=== PATIENT | male | born 1960 | race Caucasian/White ===

== ENCOUNTER 2021-10-27 08:39 | Outpatient (REF) | payer BC, SELFPAY ==
[2021-10-27 09:07] LABS: COVID-19 Test Positive (Negative)
== END 2021-10-27 08:40 | disposition home or self-care (01) ==
LOC: HO.LAB 08:39
PROVIDERS: Visit Provider Internal Medicine
DX: Z20.822 Contact with and (suspected) exposure to COVID-19 (principal)
CPT/HCPCS: 87635; C9803

== ENCOUNTER 2023-05-31 08:33 | Outpatient (AMB) | payer BC, SELFPAY ==
--- OUTSIDE RECORDS SUMMARY | 2023-05-31 08:34 | XMS_ITS | Continuity of Care Document ---
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 Role Phone Not on Staff, PCP Primary Care Physician Unavail able Encounter [facility] Date(s): 05/09/20 - 05/16/20 [facility] [address] [place] [address]- [facility] Attending Physician: Rehan Jimenez MD Allergies, Adverse Reactions, Alerts Substance Reaction Severity Status penicillin A CHILD,CAN'T RECALL SYMPTOMS Active Immunizations Given and Recorded Vaccine Date Status Refusal Reason tetanus-diphtheria toxoids (Td) 12/07/02 Given Medications amoxicillin-clavulanate 875 mg-125 mg oral tablet 1 tablet, By Mouth, Every 12 hours, for 7 days, # 14 tablet, 0 Refills, Acute 05/20/20 7:23:00 EDT,05/13/20 7:23:00 EDT, Tablet, [facility], 193, cm, 05/09/20 8:39:00 EDT, Height Start Date: 05/13/20 Stop Date: 05/20/20 Status: Ordered chlorhexidine topical 0.12% liquid 15 mL = 0.018 Gm, Swish and Spit, 4 times a day, # 840 mL, 0 Refills, Maintenance, 05/13/20 7:23:00EDT, Oral Rinse, [facility], 15 mL Swish and Spit 4 times a day,x14 days, 193, cm, 05/09/20 8:39:00 EDT, Height Start Date: 05/13/20 Stop Date: 05/27/20 Status: Ordered gabapentin 300 mg oral capsule 300 mg, 1, capsule, By Mouth, 3 times a day, # 42 capsule, Refills 0, Tot. Refills 0, Maintenance, 05/13/20 7:23:00 EDT, Route to Pharmacy Electronically, [facility], 193, cm, 05/09/20 8:39:00 EDT, Height Start Date: 05/13/20 Stop Date: 05/27/20 Status: Ordered oxyCODONE 5 mg oral tablet 5 mg, 1, tablet, By Mouth, Every 6 hours, PRN, for 5 days, # 10 tablet, Refills 0, Tot. Refills 0, Acute 05/18/20 7:25:00 EDT, Pain , Moderate, 05/13/20 7:25:00 EDT, Route to Pharmacy Electronically,[facility], Partial fill upon patient... Start Date: 05/13/20 Stop Date: 05/18/20 Status: Ordered Tylenol 325 mg oral tablet 650 mg, 2, tablet, By Mouth, Every 6 hours, for 14 days, # 112 tablet, Refills 0, Tot. Refills 0, Acute 05/27/20 7:23:00 EDT, 05/13/20 7:23:00 EDT, Route to Pharmacy Electronically, [facility], 193, cm, 05/09/20 8:39:00 EDT, Height Start Date: 05/13/20 Stop Date: 05/27/20 Status: Ordered Problem List Condition Effective Dates Status Health Status Inform ant Hypercholesterolemia(Confirmed) Active Insomnia(Confirmed) Active Vital Signs Most recent to oldest [Reference Range]: 1 Height 193 cm (05/09/20 8:39 AM) Weight 99.4 kg (05/09/20 8:39 AM) Body Mass Index [18.5-24.99] 26.69 *H* (05/09/20 8:39 AM) Temperature [96.8-100.4 DegF] 97.3 DegF (05/09/20 8:39 AM) Temperature Route Temporal (05/09/20 8:39 AM) Weight Obtained Via Standing scale (05/09/20 8:39 AM)
--- OUTSIDE RECORDS SUMMARY | 2023-05-31 08:34 | XMS_ITS | Continuity of Care Document ---
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 Rubber Splicer Name Role Phone Not on Staff, PCP Primary Care Physician Unavail able [facility]counter [facility] Date(s): 05/05/20 - 06/04/20 [facility] [phone]- [facility] Allergies, Adverse Reactions, Alerts Substance Reaction Severity Status penicillin A CHILD,CAN'T RECALL SYMPTOMS Active Immunizations Given and Recorded Vaccine Date Status Refusal Reason tetanus-diphtheria toxoids (Td) 12/07/02 Given Medications chlorhexidine topical 0.12% liquid 15 mL = 0.018 Gm, Swish and Spit, 4 times a day, # 840 mL, 0 Refills, Maintenance, 05/13/20 7:23:00EDT, Oral Rinse, [facility], 15 mL Swish and Spit 4 times a day,x14 days, 193, cm, 05/09/20 8:39:00 EDT, Height Start Date: 05/13/20 Stop Date: 05/27/20 Status: Ordered gabapentin 300 mg oral capsule 300 mg, 1, capsule, By Mouth, 3 times a day, # 42 capsule, Refills 0, Tot. Refills 0, Maintenance, 05/13/20 7:23:00 EDT, Route to Pharmacy Electronically, [facility], 193, cm, 05/09/20 8:39:00 EDT, Height Start Date: 05/13/20 Stop Date: 05/27/20 Status: Ordered Problem List Condition Effective Dates Status Health Status Inform ant Hypercholesterolemia(Confirmed) Active Insomnia(Confirmed) Active
--- NOTE | 2023-05-31 08:38 | AM.OFFWIN_ITS ---
Intake Vital Signs 05/31/23 08:44 Weight 221 lb BP 130/80 Blood Pressure Location Lt brachial Position Sitting Pulse 96 Pulse Source Pulse Oximeter Temp 97.5 F Temp Source Temporal Artery Scan Pulse Oximetry (%) 95 Oxygen Delivery Method Room Air Intake Visit Reasons: EP Flu like symptoms [phone] Intake Note: Pt is here for flu like symptoms headache, sore throat, body aches and pt stated symptoms occurred Tuesday. Patient Tobacco Use Status: Never used Tobacco Allergies No Known Allergies Allergy (Verified 05/31/23 08:38) Do you need a note to return to daycare/school/sports/work: Yes HPI EP Flu like symptoms [phone] HPI Details 62-year-old male patient presents today for sick visit. He reports that he developed sore throat, headaches, body Tuesday, and symptoms were worse on Tuesday. Since then, he has been slowly improving. Needs a note for work due to illness. He denies any known exposure to sick contacts. He has not done any home testing. He denies any shortness of breath or GI symptoms. Denies any fever or chills. [facility] Social History Patient Tobacco Use Status: Never used Tobacco Review of Systems Const All systems reviewed & are unremarkable except as noted in HPI and below Physical Exam Vital Signs: Last Vital Signs Temp 97.5 F 05/31/23 08:44 Pulse 96 05/31/23 08:44 BP 130/80 05/31/23 08:44 Pulse Ox 95 05/31/23 08:44 Oxygen Delivery Method Room Air 05/31/23 08:44 Const General: cooperative, healthy appearing, comfortable and no acute distress HEENT Head: Yes normal to inspection Ears: hearing grossly normal bilaterally and TM's normal bilaterally General nose exam: Normal external nose present, Normal nasal mucous membranes and turbinates present and Nasal discharge present mucoid Face and sinus: Yes normal facial exam Mouth: Normal oral and palatal mucosa present and moist mucous membranes Throat: Yes posterior oropharynx abnormal ( Mild erythema) Resp Effort & Inspection: normal respiratory effort and able to speak in complete sentences Auscultation: clear to auscultation bilaterally Cardio Jugular venous distension: no JVD Palpation: normal PMI Rate: regular rate Rhythm: regular rhythm Skin General skin exam: no rashes or lesions noted Extrem General: Yes capillary refill normal and Yes no clubbing, cyanosis or edema Psych Appearance: grossly normal Mental Status: mental status grossly normal Speech and movement: Normal speech and movement present Assessment & Plan Assessment & Plan (1) URI (upper respiratory infection): Code(s): J06.9 - Acute upper respiratory infection, unspecified Qualifiers: URI type: unspecified viral URI Qualified Code(s): J06.9 - Acute upper respiratory infection, unspecified Plan: Patient's symptoms consistent with viral illness. This has been improving for the last couple of days. Patient declines any viral testing/swabs. I provided him with a note to return to work on Tuesday. If he does not improve by then, or if symptoms worsen, he should return to the clinic for further evaluation. I advised he continue to rest, increase hydration, and increased vitamin C intake. He can also take Motrin / Tylenol for symptomatic treatment as needed. He verbalizes understanding and agrees to plan Coding Level of Care Code Est Pt Level 3 (76847) Diagnoses URI (upper respiratory infection) J06.9 URI type: unspecified viral URI
[2023-05-31 08:44] VITALS: BP 130/80; PULSE 96; TEMP 36.4; O2SAT 95
== END 2023-05-31 09:01 | disposition home or self-care (01) ==
PROVIDERS: Visit Provider Nurse Practitioner Family
DX: J06.9 Acute upper respiratory infection, unspecified (principal)
CPT/HCPCS: 99213

== ENCOUNTER 2024-10-08 10:46 | Emergency (ER) | payer BC, SELFPAY ==
--- NOTE | ~2024-10-08 | XR_ITS ---
EXAMINATION: Right elbow right shoulder. CLINICAL INDICATION: Fall. TECHNIQUE: 3 views right shoulder. 3 views right elbow. COMPARISON: Nothing recent. FINDINGS: RIGHT SHOULDER: There is mild cephalic migration of the related in relation to the glenoid. The glenohumeral joint spaces normal. There is loss of AC joint space with inferior spurring. No visible acute fracture, dislocation or subluxation seen. No lytic process. The soft tissues are normal. RIGHT ELBOW: There is no visible acute fracture, dislocation or subluxation seen. There is small enthesophyte along the olecranon process. No abnormal joint effusion. XR/XR elbow RT min 3V IMPRESSION: Mild degenerative changes right AC joint. No visible acute fracture or dislocation seen. Small enthesophyte along the olecranon process. Otherwise no visible acute fracture, dislocation, joint effusion or loose bodies. Electronically signed by: Jose Ramon Baker MD 10/08/2024 12:00 PM [facility]
--- NOTE | ~2024-10-08 | XR_ITS ---
EXAMINATION: Right elbow right shoulder. CLINICAL INDICATION: Fall. TECHNIQUE: 3 views right shoulder. 3 views right elbow. COMPARISON: Nothing recent. FINDINGS: RIGHT SHOULDER: There is mild cephalic migration of the related in relation to the glenoid. The glenohumeral joint spaces normal. There is loss of AC joint space with inferior spurring. No visible acute fracture, dislocation or subluxation seen. No lytic process. The soft tissues are normal. RIGHT ELBOW: There is no visible acute fracture, dislocation or subluxation seen. There is small enthesophyte along the olecranon process. No abnormal joint effusion. XR/XR shoulder RT min 2V IMPRESSION: Mild degenerative changes right AC joint. No visible acute fracture or dislocation seen. Small enthesophyte along the olecranon process. Otherwise no visible acute fracture, dislocation, joint effusion or loose bodies. Electronically signed by: Jose Ramon Baker MD 10/08/2024 12:00 PM [facility]
--- OUTSIDE RECORDS SUMMARY | 2024-10-08 10:51 | XMS_ITS | Data Portability ---
Author Organization [facility], [address] Address [address] [place] [address] Assessment No assessment recorded. Plan of Treatment Reminders Order Date Submit Date Provider Last Modified By Organization Details Last Modified Time Details Appointments None recorded. Lab rapid strep group A, throat 2022 023 [email or web address] [facility], [address] [place] [address], [id number], 3 17:01:03 rapid SARS CoV 2 Ag, QL IA, respiratory specimen 2022 023 [email or web address] _[facility], [address] [place] [address], [phone], 3 17:01:03 streptococc us group A, culture, throat 2022 023 [place] [facility], [address] [place] [address], [place], [address], 3 10:07:12 Referral None recorded. Procedures None recorded. Surgeries None recorded. Imaging None recorded. Medication Orders None recorded. Patient TargetsNo targets recorded. Patient Instructions Encounter Date Encounter Id Patient Instructions Last Modified By Organization Details Last Modified Time 10/26/2022 [id number] sore throat: car e instructions Not available 10/26/2022 17:01:03 viral respirator y infection: care instructions Not available 10/26/2022 17:01:03 Reason for Referral None Reported. Results Created Date Observation Date Name Description Value Unit Range Abnormal Flag Note LastModifiedBy Organization Detail LastModifiedTime 10/26/19 23 10/29/2022 BETA STREP GP A CULTU RE beta strep gp A culture NEGATI VE Refer ence Range : Negat claudia Not Available [facility] ([facility]) [address] [facility], [place], [address], 10/29/2022 12:06:24 10/26/19 23 10/26/2022 rapid SARS CoV 2 Ag, QL IA, respi rator y speci men Unknown Analyte Normal =Negat claudia Not Available [address] [place] [address], [phone], 10/26/2022 16:36:20 10/26/19 23 10/26/2022 rapid SARS CoV 2 Ag, QL IA, respi rator y speci men Unknown Analyte negati ve Not Available [address] [place] [address], [phone], 10/26/2022 16:36:20 10/26/19 23 10/26/2022 rapid strep group A, throa t Unknown Analyte Normal = Negati ve Not Available [address] [place] [address], [place], [phone], 10/26/2022 16:32:30 10/26/19 23 10/26/2022 rapid strep group A, throa t Unknown Analyte negati ve Not Available [address] [place] [address], [phone], 10/26/2022 16:32:30 Result Notes None recorded. Problems Name Problem SNOMED Code Status Onset Date Resolution Date Notes Provider Name and Address Organization Details Recorded Time Inguinal hernia [id number] Active 023 [facility] 16:34:58 Problem Notes None recorded. Procedures Surgical History Date Name Laterality Status Provider Name and Address Organization Details Recorded Time repair of inguinal hernia completed MAGNOLIA Aponte [facility] 10/26/2022 16:35:13 orthognathic operation of mandible completed MAGNOLIA BOATENG [facility] 10/26/2022 16:35:55 Imaging Results None recorded. Procedure Notes None recorded. Medical Equipment None Reported. Allergies No known drug allergies Medications Not known to be on any medication Vitals Date Recorded Body height Body mass index (BMI) Body weight Respiratory rate Body temperature Oxygen saturation Oxygen saturation in Arterial blood by Pulse oximetry Heart rate Systolic blood pressure Diastolic blood pressure Provider Name and Address Organization Details Last Updated DateTime 3 193.04 cm 28 kg/m2 747492. 25 g 18 /min 97.9 [degF] 99 % 99 % 102 /min 129 mm[Hg] 89 mm[Hg] MAGNOLIA BOATENG [facility] 16:36:56 Social History Question Answer Notes LastModified by [employer] ion Details LastModified Time Tobacco Smoking Status Never Smoker KILO Nagy [facility] 10/26/2022 16:36:13 What Is Your Level Of Alcohol Consumption? Occasional [email or web address] Information not available 10/26/2022 Do You Use Any Illicit Or Recreational Drugs? No [email or web address] Information not available 10/26/2022 Have You Recently Traveled Abroad? No [email or web address] Information not available 10/26/2022 Do You Or Have You Ever Used Any Other Forms Of Tobacco Or Nicotine? No Information not available 10/26/2022 Sex: Unknown Functional Status None recorded. Mental Status None recorded. Family History Relationship Description Onset Age of this Age Resolved Age Notes LastModified by Organization Details LastModified Time Father No current problems or disability [email or web address] Not available 10/26 16:35:58 Mother No current problems or disability [email or web address] Not available 10/26 16:35:58 Medical History No medical history recorded. Past Encounters Encounter ID Performer Location Encounter Start Date Encounter Closed Date Diagnosis/Indication Diagnosis SNOMED-CT Code Diagnosis ICD10 Code [id number] [facility] [address] [place] [address] 08/30/2020 14:25:50 08/30/2020 15:37:46 [id number] [facility] [address] [place] [address] 02/24/2022 08:22:06 02/24/2022 10:34:07 [id number] [facility] [address] [place] [address] 01/12/2020 11:29:20 01/12/2020 14:15:25 [id number] [facility] [address] [place] [address] 01/11/2016 07:59:15 01/11/2016 08:33:14 [id number] Bucky Burnett MD [facility] [address] [place] [address] 10/26/2022 16:17:56 10/26/2022 17:30:57 Upper respiratory infection 69780392 J06.9 Health Concerns Section Related Observation LastModified by Organization Detai ls LastModified Time None Recorded Concern Status LastModified by Organization Details LastModified Time None Recorded Advance Directives Directive None Recorded Payers Encounter Date Sequence Insurance Name Policy Number Policy Gabriel Covered Member ID Gabriel Member ID Guarantor Name 01/11/2016 1 [employer] [employer] 111 Chester Jennings [id number] Chester Jennings 01/12/2020 1 [employer] [employer] 111 Chester Jennings [id number] Chester Jennings 08/30/2020 1 [employer] [employer] 111 Chester Jennings [id number] Kaslaith Mcgillcz 02/24/2022 1 [employer] [employer] 111 Chester Jennings [id number] Chester Jennings 10/26/2022 1 [employer] [employer] 111 Chester Jennings [id number] Chester Jennings Notes Date Note Type Note Provider Name and Address Organization Details Recorded Time 10/26/2022 text/html Sore throatRepor yeyo bypatient.Location: hroat Severity:moderate Quality:sharp; hurts to swallow Onset/Timin days Associated Symptoms:no sputum production; no shortness of breath; no sinus pain; no vomiting; no nausea; No hoarseness;coughing Bucky Burnett MD [address] [facility] [place], [address], [place] - [facility] 10/26/2022 17:10:56
[2024-10-08 11:12] VITALS: BP 128/64; PULSE 109; RESP 20; TEMP 36.4; O2SAT 97; BMI 28.0
--- NOTE | 2024-10-08 11:14 | ED.GENADULT ---
HPI - General Adult General Chief complaint: Fall Stated complaint: R Shoulder Pain Fell 10/06/24 Time Seen by Provider: 10/08/24 12:07 Source: patient Mode of arrival: ambulatory Limitations: no limitations History of Present Illness ED Provider: PASHA AARON PA-C HPI narrative: 63-year-old male with no significant past medical history presents to the ED today for evaluation of right shoulder and right elbow pain s/p slip and fall on ice 2 days ago. He reports landing primarily on his right elbow however felt a majority of the impact/ pain within his right shoulder. He denies head strike or LOC. He was not on anticoagulation. Since this fall, he endorses pain primarily to his right shoulder with limited range of motion. No radiation of pain. No numbness/tingling/weakness of the RUE. He has not been taking anything for the pain at home. No history of surgery on the shoulder. Related Data Previous Rx's ?Medication ?Instructions ?Recorded naproxen 500 mg tablet 500 mg PO Q12H PRN pain (scale 10/08/24 score 1-3) #20 tabs prednisone 20 mg tablet 40 mg (2 x 20 mg) PO DAILY 4 days 10/08/24 #8 tabs Allergies Allergy/AdvReac Type Severity Reaction Status Date / Time No Known Allergies Allergy Verified 10/08/24 11:14 Review of Systems Review of Systems: Constitutional: No fever, chills, fatigue, night sweats, weight changes ENT/Mouth: No ear pain, hearing loss, nasal congestion, sinus pain, rhinorrhea, sore throat Eyes: No eye pain, swelling, redness, vision changes, discharge Cardio: No chest pain, palpitations, ASHBY, orthopnea, peripheral edema Pulm: No SOB, cough, sputum, wheezing, dyspnea, hemoptysis GI: No nausea, vomiting, hematemesis, abdominal pain, diarrhea, constipation, hematochezia, melena : No irregular bleeding, dysuria, frequency, urgency, hesitancy, hematuria, flank pain, urinary flow changes, urinary incontinence or retention MSK: No back pain, neck pain, joint pain, myalgias, +right shoulder/ right elbow pain Skin: No lesions, rashes Neuro: No weakness, numbness, paresthesias, LOC, dizziness, headache Psych: No anxiety/panic, depression, SI/HI, AH/VH All other systems reviewed and are negative. [facility] Past Medical History Attestation statement: The following information was validated with the patient. Source: old records reviewed and nursing notes reviewed Social History Social History Patient Tobacco Use Status: Never used Tobacco Advance Directives: No Advance Directives Information Provided: Yes Physical Exam ED Vital Signs: Vital Signs - 24 hr 10/08/24 11:12 Temperature 97.5 F Pulse Rate 109 H Respiratory Rate 20 Blood Pressure 128/64 Pulse Oximetry 97 Oxygen Delivery Method Room Air BMI result Body Mass Index 28.0 tachycardic, vitals otherwise wnl General: Well appearing, in no acute distress. Skin: Warm, dry, intact. No rashes or lesions. Head: Normocephalic, atraumatic. no palpable skull fracture. no battles sign. no raccoon eyes. EENT: Hearing is intact b/l. Conjunctiva clear. PERRLA. EOM intact. Moist mucous membranes.? Neck: no midline tenderness. Cardiac: Chest wall symmetric. RRR Lungs: Normal respiratory effort without accessory muscle use Abdomen: Soft, non-tender, non-distended Back: No midline spinous or paraspinal tenderness. No step off deformity. Ext: + right shoulder without noted deformity or swelling. No overlying erythema. Extremely limited ROM with abduction of right shoulder. Able to abduct the shoulder approximately 20? prior to pain onset. Tender to palpation along lateral and anterior aspects of right shoulder without palpable deformity or fluctuance. No noted deformity or swelling over right elbow. nontender. passive and active ROM intact. 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 Neuro: AOx3. Normal speech. No saddle anesthesia. Sensation intact to light touch. NV intact distally. Ambulating with steady gait. Psych: Appropriate mood and affect. Responds appropriately to questions. Course Course Course Narrative: RME, this is a rapid medical exam performed by Cliff Fitzgerald please refer to primary provider for complete H&P- 63-year-old male presents for evaluation of right shoulder and elbow pain. He reports falling on Tuesday, 2 days ago. Denies head strike. Plan for x-rays of the right shoulder and elbow Reevaluation(s) Reevaluation #1: X-ray of right shoulder shows mild degenerative changes within the right AC joint without visible fracture or dislocation. He was tender to palpation along rotator cuff musculature. Concern for rotator cuff injury. Placed in sling, Motrin provided in the ED. Prednisone and NSAIDs sent to pharmacy for treatment. X-ray of right elbow shows small enthesophyte along the olecranon process otherwise no visible acute fracture, dislocation or joint effusion. He was in no tenderness to palpation over olecranon. He has full ROM intact to right elbow. Findings are benign. Patient has been advised to follow up with your talent specialist outpatient. Referral provided. Advised to contact them for appointment. Patient has remained stable throughout ED visit today. Discussed worrisome signs and symptoms and when to return to the ED. All questions answered at this time. Patient is agreeable with disposition and stable for discharge. Procedures Orthopedic Splinting/Casting Injury #1: Side: right Upper Extremity Injury Location: shoulder Upper Extremity Immobilizer: sling/shoulder immobilizer Medical Decision Making Medical Decision Making MDM Narrative: 63-year-old male with no significant past medical history presents to the ED today for evaluation of right shoulder and right elbow pain s/p slip and fall on ice 2 days ago. He was tachycardic to 109, vitals are otherwise WNL. He is nontoxic-appearing and in no acute distress. Exam is significant for right shoulder without noted deformity or swelling. No overlying erythema. Extremely limited ROM with abduction of right shoulder. Able to abduct the shoulder approximately 20? prior to pain onset. Tender to palpation along lateral and anterior aspects of right shoulder without palpable deformity or fluctuance. No noted deformity or swelling over right elbow. nontender. passive and active ROM intact. 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 CMS intact Differential diagnosis includes rotator cuff injury, fracture, dislocation, sprain/strain, arthritis. Presentation less consistent with pseudogout, gout, bursitis, tendonitis. Unlikely compartment syndrome, neurovascular compromise, threat to limb Plan for xrays, pain control, and re-evaluation. Differential Diagnosis Differential Diagnoses: The differential diagnosis associated with the presentation includes as above. Admission/Observation Not indicated. Independent Interpretation I performed an independent interpretation of an: Plain X-Ray Interpretation: xr right shoulder without noted fracture or dislocation Radiology Impression Discussion of test interpretation with radiology: I have reviewed the radiologist's reading. Radiologist Impression: EXAMINATION: Right elbow right shoulder. CLINICAL INDICATION: Fall. TECHNIQUE: 3 views right shoulder. 3 views right elbow. COMPARISON: Nothing recent. FINDINGS: RIGHT SHOULDER: There is mild cephalic migration of the related in relation to the glenoid. The glenohumeral joint spaces normal. There is loss of AC joint space with inferior spurring. No visible acute fracture, dislocation or subluxation seen. No lytic process. The soft tissues are normal. RIGHT ELBOW: There is no visible acute fracture, dislocation or subluxation seen. There is small enthesophyte along the olecranon process. No abnormal joint effusion. XR/XR shoulder RT min 2V IMPRESSION: Mild degenerative changes right AC joint. No visible acute fracture or dislocation seen. Small enthesophyte along the olecranon process. Otherwise no visible acute fracture, dislocation, joint effusion or loose bodies. Electronically signed by: Jose Ramon Baker MD 10/08/2024 12:00 PM [facility] Prescription Management I considered prescription management with: Pain Medication (Naproxen) and Other (Prednisone) Social Determinants Patient?s care significantly limited by Social Determinants of Health including: Other Social Determinant of Health Critical Care Time Critical Care Time Critical Care Time: No Discharge Plan Discharge Clinical Impression: Injury of right rotator cuff Patient Disposition: Home, Self-Care Instructions: Rotator Cuff Injury (ED) Additional Instructions: You were evaluated in the ED today for right shoulder and elbow pain after slip and fall on ice. The x-rays of your right shoulder and elbow do not demonstrate fracture or dislocation. Your exam is concerning for injury to your right rotator cuff muscles. You have been placed in a sling today to help with immobilization/comfort. As discussed, I advise you to take steroids to help with inflammation. Prednisone as a steroid that has been sent to your pharmacy for you to take over the next 5 days. I also recommend NSAIDs for pain control. This will also help with any swelling/inflammation. Naproxen has been sent to your pharmacy for you to take as needed for pain. Do not take this with other NSAIDs such as Motrin as this can cause increased risk of GI bleeding You need to follow up with an talent specialist. You have been provided with a referral. Call them to establish care. They will not call you. Return with any new or worsening symptoms. In the case of an emergency call 911. Prescriptions: New naproxen 500 mg tablet 500 mg PO Q12H PRN (Reason: pain (scale score 1-3)) Qty: 20 0RF prednisone 20 mg tablet 40 mg PO DAILY 4 Days Qty: 8 0RF Referrals: [facility] [place] [facility] Surgeons [Provider Group] - 3 days (right rotator cuff injury) Stand Alone Forms: Work/School Release Print Language: Citizen Of [place]
[2024-10-08 13:01] VITALS: BP 128/64; PULSE 109; RESP 20; TEMP 36.4; O2SAT 97
== END 2024-10-08 13:01 | disposition home or self-care (01) ==
PROVIDERS: Emergency Provider Emergency Medicine
DX: S46.001A Unspecified injury of muscle(s) and tendon(s) of the rotator cuff of right shoulder, initial encounter (principal); W00.0XXA Fall on same level due to ice and snow, initial encounter; Y93.9 Activity, unspecified; Y92.9 Unspecified place or not applicable; Y99.9 Unspecified external cause status; M25.511 Pain in right shoulder; M25.521 Pain in right elbow
CPT/HCPCS: 73030; 73080; 99283

== ENCOUNTER → 2024-10-08 11:15 | Outpatient (BNV) | payer BC, SELFPAY | PROVIDERS: Visit Provider Radiology Diagnostic Radiology | DX: M25.511 Pain in right shoulder (principal); M25.521 Pain in right elbow | CPT/HCPCS: 73030; 73080 ==

== ENCOUNTER 2024-10-15 10:22 | Outpatient (AMB) | payer BC, SELFPAY ==
--- NOTE | 2024-10-15 10:40 | A.OFFVIS_ITS ---
Vital Signs 10/15/24 10:46 Height 6 ft 4 in Weight 230 lb BMI 28.0 Handedness Right Intake Visit Reasons: New Pt - right shoulder injury, DOI 10/06/24 Intake Note: Chester is a 64 year old right hand dominant male who presents today as a new patient for a evaluation of his right shoulder injury, DOI 10/06/24. Patient reports slipping and falling on ice which lead him to land on his right side. He states still having severe pain in his shoulder and moves down to his bicep. ROM is limited. Patient hasn't tried any pain medication. Allergies No Known Allergies Allergy (Verified 10/15/24 10:43) HPI HPI New Pt - right shoulder injury, DOI 10/06/24: Details: Mr. Sykes he is a 64-year-old right-hand dominant male who presents to the office today for evaluation of right shoulder pain. He reports that he fell on 10/06/2024. During that fall he was on a staircase and when he fell he jammed his right elbow into the stair also jamming his right shoulder upward. Ever since then he has had significant pain and limited range of motion. 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 Abduction to 60 degrees. External rotation to end range. Able to reach back pocket. Pain with cross- body reach. No additional special tests were performed due to limited range of motion and pain. NVI. Assessment & Plan Assessment & Plan (1) Rotator cuff arthropathy of right shoulder: Code(s): M12.811 - Other specific arthropathies, not elsewhere classified, right shoulder Category: Medical Plan: Mr. Dziendzielwicz he is a 64-year-old right-hand dominant male who presents to the office today for evaluation of right shoulder pain. He reports that he fell on 10/06/2024. During that fall he was on a staircase and when he fell he jammed his right elbow into the stair also jamming his right shoulder upward. Ever since then he has had significant pain and limited range of motion. All the office today patient exhibits extreme limitations in range of motion. We discussed the role of physical therapy to regain his range of motion and to help with inflammation. I would like him to attend to at least 4-6 weeks of physical therapy and then present back to the office for re-evaluation. Should he continue to have pain and difficulty with range of motion MRI will be ordered at that time. Follow up with me in 4-6 weeks sooner if needed. 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 I have given him another work note only office today until follow up. X-rays of the right shoulder were obtained in the office today and reviewed by me, Catina Chaparro PA-C, and are negative for any acute fracture or dislocation. There is some evidence of a high-riding humerus. Coding Level of Care Code New Pt Level 4 (84269) Diagnoses Rotator cuff arthropathy of right shoulder M12.811
[2024-10-15 10:46] VITALS: BMI 28.0
--- OUTSIDE RECORDS SUMMARY | 2024-10-15 11:24 | XMS_ITS | Data Portability ---
Author Organization [facility], [address] Address [address] [place] [address] Assessment No assessment recorded. Plan of Treatment Reminders Order Date Submit Date Provider Last Modified By Organization Details Last Modified Time Details Appointments None recorded. Lab rapid strep group A, throat 2022 023 [email or web address] 20995[facility], [address] [place] [address], [id number], 3 17:01:03 rapid SARS CoV 2 Ag, QL IA, respiratory specimen 2022 023 [email or web address] _[facility], [address] [place] [address], [id number], 3 17:01:03 streptococc us group A, culture, throat 2022 023 [place] [facility], [address] [place] [address], [place], [address], 3 10:07:12 Referral None recorded. Procedures None recorded. Surgeries None recorded. Imaging None recorded. Medication Orders None recorded. Patient TargetsNo targets recorded. Patient Instructions Encounter Date Encounter Id Patient Instructions Last Modified By Organization Details Last Modified Time 10/26/2022 [id number] sore throat: car e instructions Not available [...] Range : Negat claudia Not Available [facility] ([facility]) [address] [facility], [place], [address], 10/29/2022 12:06:24 10/26/19 23 10/26/2022 rapid SARS CoV 2 Ag, QL IA, respi rator y speci men Unknown Analyte Normal =Negat claudia Not Available [address] [place] [address], [phone], 10/26/2022 16:36:20 10/26/19 23 10/26/2022 rapid SARS CoV 2 Ag, QL IA, respi rator y speci men Unknown Analyte negati ve Not Available [address] [place] [address], [phone], 10/26/2022 16:36:20 10/26/19 23 10/26/2022 rapid strep group A, throa t Unknown Analyte Normal = Negati ve Not Available [address] [place] [address], [place], [phone], 10/26/2022 16:32:30 10/26/19 23 10/26/2022 rapid strep group A, throa t Unknown Analyte negati ve Not Available [address] [place] [address], [id number], 10/26/2022 16:32:30 Result Notes None recorded. Problems Name Problem SNOMED Code Status Onset Date Resolution Date Notes Provider Name and Address Organization Details Recorded Time Inguinal hernia [id number] Active 023 [facility] 16:34:58 Problem [...] Updated DateTime 3 193.04 cm 28 kg/m2 837806. 25 g 18 /min 97.9 [degF] 99 % 99 % 102 /min 129 mm[Hg] 89 mm[Hg] MAGNOLIA BOATENG [facility] 16:36:56 Social History Question Answer Notes LastModified by [employer] ion Details LastModified Time Tobacco Smoking Status Never Smoker [facility] Nag[facility] 10/26/2022 16:36:13 What Is Your Level Of Alcohol Consumption? Occasional [email or web address] Information not available 10/26/2022 Do You Use Any Illicit Or Recreational Drugs? No [email or web address] Information not available 10/26/2022 Have You Recently Traveled Abroad? No [email or web address] Information not available 10/26/2022 Do You Or Have You Ever Used Any Other Forms Of Tobacco Or Nicotine? No [email or web address] Information not available 10/26/2022 Sex: Unknown Functional Status None recorded. Mental Status None recorded. Family History Relationship Description Onset Age of this Age Resolved Age Notes LastModified by Organization Details LastModified Time Father No current problems or disability [email or web address] Not available 10/26 16:35:58 Mother No current problems or disability [email or web address] Not available 10/26 16:35:58 Medical History No medical history recorded. Past Encounters Encounter ID Performer Location Encounter Start Date Encounter Closed Date Diagnosis/Indication Diagnosis SNOMED-CT Code Diagnosis ICD10 Code Diagnosis Note [id number] [address] [place] [address] 08/30/2020 14:25:50 08/30/2020 15:37:46 [id number] [address] [facility] [place] [address] 02/24/2022 08:22:06 02/24/2022 10:34:07 [id number] [address] [facility] JOSE J Gonsalez [address] 01/12/2020 11:29:20 01/12/2020 14:15:25 [id number] [address] [facility] [place] Gonsalez [address] 01/11/2016 07:59:15 01/11/2016 08:33:14 [id number] Bucky Burnett MD [address] [facility] [place] [address] 10/26/2022 16:17:56 10/26/2022 17:30:57 Upper respiratory infection [id number] J06.9 Health Concerns Section Related Observation LastModified by Organization Detai ls LastModified Time None Recorded Concern Status LastModified by Organization Details LastModified Time None Recorded Advance Directives Directive None Recorded Payers Encounter Date Sequence Insurance Name Policy Number Policy Gabriel Covered Member ID Gabriel Member ID Guarantor Name 01/11/2016 1 [employer] [employer] 111 Chester Jennings [id number] Chester Jennings 01/12/2020 1 [employer] [employer] 111 Chester Jennings [id number] Chester Jennings 08/30/2020 1 [employer] [employer] 111 Chester Jennings [id number] Kaslaith Jennings 02/24/2022 1 [employer] [employer] 111 Chester Jennings [id number] Chester Jennings 10/26/2022 1 [place] [employer] 111 Chester Jennings [id number] Chester Jennings Notes Date Note Type Note Provider Name and Address Organization Details Recorded Time 10/26/2022 text/html Sore throatRepor yeyo bypatient.Location:t hroat Severity:moderate Quality:sharp; hurts to swallow Onset/Timin days Associated Symptoms:no sputum production; no shortness of breath; no sinus pain; no vomiting; no nausea; No hoarseness;coughing Bucky Burnett MD [address] [place], [place] [address], [address], [place] - [facility] 10/26/2022 17:10:56
== END 2024-10-15 11:00 | disposition home or self-care (01) ==
PROVIDERS: Visit Provider Physician Assistant
DX: M12.811 Other specific arthropathies, not elsewhere classified, right shoulder (principal)
CPT/HCPCS: 99204

== ENCOUNTER 2024-11-13 08:00 | Outpatient (RCR) | payer BC, SELFPAY ==
--- NOTE | 2024-10-29 09:00 | MHC.PT.EP ---
[facility] [place] [address] Tigre Haji [address] [phone] F: [phone] F: [phone] F: [phone] F: [phone] Physical Therapy Plan of Care Date of Evaluation: 10/29/24 Date of Surgery: Diagnosis: This is a 64 yo male presenting to skilled PT with a script for rotator cuff arthropathy of R shoulder. Assessment: This is a 64 yo male presenting to skilled PT with a script for rotator cuff arthropathy of R shoulder. DOI 10/06/24. Patient reports slipping and falling on ice and landed on his right side (jamming shoulder upwards). Patient is being followed by [facility] ortho who sent him here. The last ortho note states: We discussed the role of physical therapy to regain his range of motion and to help with inflammation. I would like him to attend to at least 4-6 weeks of physical therapy and then present back to the office for re-evaluation. Should he continue to have pain and difficulty with range of motion MRI will be ordered at that time. Follow up with me in 4-6 weeks sooner if needed. 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 I have given him another work note only office today until follow up. He is here today reporting that his pain is the same. Pain is located anterior shoulder and this radiates into the bicep, achy in nature and constant. Pain increases with abduction, [place], donning clothing, driving. He is RHD. He does endorse some R wrist pain as well. Denies numbness or tingling. Assessment reveals pain that ranges from up to a 7/10 at the worst. Patient demos decreased R shoulder ROM, strength of R shoulder and scapular stabalizers, TTP at GHJ joint line and ACH and impaired posture with forward head and rounded shoulders. Based on functional limitations, impaired QOL and pain tolerance patient is a good candidate for skilled PT 2x/wk for 4wks. Frequency and Duration: The patient will be seen 2x/wk for 4wks Short Term Goals: (In 2 weeks) Demo I with HEP Improve shoulder AROM by at least 10 degs Demo proper scapular recruitment with appropriate shoulder strengthening exercises Railroad Repairer Goals: (in 4 wks) Improve shoulder nonpainful AROM to almost near equal B Demo at least 1 grade improvement in MMT for shoulder Improve SPADI by at least 10 points Improve overall functional QOL by at least 50% Treatment Plan: Modalities to reduce pain, spasms and effusion. Manual therapy to restore motion and function. Therapeutic exercise to improve strength and flexibility. Neuromuscular re-education for posture and balance. Therapeutic activities to return to functional activities of daily living. Electronically signed by: Mariana Hedrick PT Please sign and return to therapist. Thank you for your referral.
--- NOTE | 2024-11-13 08:50 | MHC.PT.PR ---
[facility] [place] Office [place] Office [place] Office [address] Vanesa Haji [address] [phone] F: [phone] F: [phone] F: [phone] F: [phone] Physical Therapy Progress Note Diagnosis: This is a 64 yo male presenting to skilled PT with a script for rotator cuff arthropathy of R shoulder. Date of Surgery: Date of Evaluation: 10/29/24 Treatments to Date: 4 Cancellations to Date: 0 No Shows to Date: 0 Subjective: Pain is the same. Pain Score and Location: 7 R shoulder Objective Measures: Shoulder AROM: flexion 10, abduction 15, ER 60, IR 60 (PROM flexion 130, abduction 110, 60 and 60 with arm by side) Shoulder MMT: flexion 2-, abduction 2-, ER 3-, IR 4- cervical AROM: all WNL elbow AROM: WNL with some mild symptoms end range pronation/supination elbow MMT: flexion 5, extension 5, pronation and supination 5 SPADI: pain 82% and disability 74% Pain scale and location: 10/10 deep inside, sharp, achy and constant Functional deficits: lifting, reaching, ADLs, work related tasks, sleeping Assessment: 11/13: Patient has come to 4 weeks of PT without improvements in his symptoms or function. Above in OM are the updated ROM, strength, pain and SPADI scales. In PT we have tried RTC and scapular strengthening, ROM/stretching, STM, manual passive ROM and mobs, ice/MH, KT without improvements in pain. He is frustrated with lack of improvements and would like an image. At this point I do not see the point in him continuing skilled PT at this time and am recommending he follow up with referring MD for ? MRI or pain management. PT Plan: Discharge from PT Frequency and Duration: The patient will be seen 2x/wk for 4wks Treatment Plan: Therapeutic Exercise Dynamic Therapeutic Activities Neuromuscular Re-ed Manual Therapies Joint Mobilization Taping Home Exercise Program Patient Education Hot or Cold Pack Reviewed/ Agreed with Student Documentation: Therapist: Thank you once again for your referral.
--- NOTE | 2024-12-10 07:13 | MHC.PT.DC ---
[facility] [place] [facility] [place] [facility] [place] [facility] [address] Vanesa Haji [address] [phone] F: [phone] F: [phone] F: [phone] F: [phone] Physical Therapy Discharge Report Diagnosis: This is a 64 yo male presenting to skilled PT with a script for rotator cuff arthropathy of R shoulder. Date of Surgery: Date of Evaluation: 10/29/24 Date of Discharge: 12/10/24 Treatments to Date: 4 Cancellations to Date: 0 No Shows to Date: 0 Discharge Status: Patient Elected to Stop Recommend MD Follow-up Discharge Summary: 11/13: Patient has come to 4 weeks of PT without improvements in his symptoms or function. Above in OM are the updated ROM, strength, pain and SPADI scales. In PT we have tried RTC and scapular strengthening, ROM/stretching, STM, manual passive ROM and mobs, ice/MH, KT without improvements in pain. He is frustrated with lack of improvements and would like an image. At this point I do not see the point in him continuing skilled PT at this time and am recommending he follow up with referring MD for ? MRI or pain management. Chart closed after 30 days. Electronically signed by: Mariana Hedrick PT Please sign and return to therapist. Thank you for your referral.
== END 2024-12-10 07:13 | disposition home or self-care (01) ==
LOC: HO.PTCHIC 08:00
PROVIDERS: PCP Internal Medicine; Visit Provider Physician Assistant
DX: M12.811 Other specific arthropathies, not elsewhere classified, right shoulder (principal)
CPT/HCPCS: 97110; 97140; 97162

== ENCOUNTER 2024-11-20 09:19 | Outpatient (AMB) | payer BC, SELFPAY ==
--- NOTE | 2024-11-20 09:20 | MHC.OFFVIS ---
Intake Visit Reasons: OV - right shoulder injury, DOI 10/06/24 Intake Note: Chester is a 64 year old right hand dominant male who presents today for a follow up of his right shoulder injury, DOI 10/06/24. Patient reports his pain hasn't changed even when going to PT. Patient reports PT didn't give him any relief. He informed me that he notices a lump on his right wrist about 2 weeks ago. Allergies No Known Allergies Allergy (Verified 11/20/24 09:22) HPI HPI OV - right shoulder injury, DOI 10/06/24: Details: Mr. Sykes he is a 64-year-old right-hand dominant male who presents to the office today for follow-up of right shoulder pain. He reports that he fell on 10/06/2024. During that fall he was on a staircase and when he fell he jammed his right elbow into the stair also jamming his right shoulder upward. Ever since then he has had significant pain and limited range of motion. At his last appointment on 10/15/2024 the patient was referred to physical therapy in which he has attended. He reports that his pain and motion has not improved. 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 Abduction to 60 degrees. External rotation to end range. Able to reach back pocket. Pain with cross-body reach. No additional special tests were performed due to limited range of motion and pain. NVI. Assessment & Plan Assessment & Plan (1) Rotator cuff arthropathy of right shoulder: Code(s): M12.811 - Other specific arthropathies, not elsewhere classified, right shoulder Category: Medical Plan Mr. Sykes he is a 64-year-old right-hand dominant male who presents to the office today for follow-up of right shoulder pain. He reports that he fell on 10/06/2024. During that fall he was on a staircase and when he fell he jammed his right elbow into the stair also jamming his right shoulder upward. Ever since then he has had significant pain and limited range of motion. At his last appointment on 10/15/2024 the patient was referred to physical therapy in which he has attended. He reports that his pain and motion has not improved. Therefore, the patient was referred for an MRI to further evaluate the integrity of the right shoulder and surrounding structures. Contact me via telephone once the MRI is obtained. We can discuss the imaging results over the phone or in person. Patient understands and accepts. He is provided with a work note to keep him out pending MRI imaging. His follow-up is pending MRI, sooner if needed. Orders: Orders MR shoulder RT wo con Today M12.811 - Other specific arthropathies, not elsewhere classified, right shoulder Coding Level of Care Code Est Pt Level 3 (32419) Diagnoses Rotator cuff arthropathy of right shoulder M12.811
--- OUTSIDE RECORDS SUMMARY | 2024-11-20 10:27 | XMS_ITS | Data Portability ---
Author Organization KILO Kilgore [facility], [facility] Address [address] [place] [address] Assessment No assessment recorded. Plan of Treatment Reminders Order Date Submit Date Provider Last Modified By Organization Details Last Modified Time Details Appointments None recorded. Lab rapid strep group A, throat 2022 023 [email or web address] 20995[facility], [address] [place] [address], [id number], 3 17:01:03 rapid SARS CoV 2 Ag, QL IA, respiratory specimen 2022 023 [email or web address] _[facility], [address] [place] [address], [phone], 3 17:01:03 streptococc us group A, culture, throat 2022 023 [place] [facility], [address] [place] [address], [place], [address], 3 10:07:12 Referral None recorded. Procedures None recorded. Surgeries None recorded. Imaging None recorded. Medication Orders None recorded. Patient TargetsNo targets recorded. Patient Instructions Encounter Date Encounter Id Patient Instructions Last Modified By Organization Details Last Modified Time 10/26/2022 [id number] sore throat: car e instructions Not available [...] : Negat claudia Not Available [facility] ([facility]) [address] [facility], [place], [address], 10/29/2022 12:06:24 10/26/19 23 10/26/2022 rapid SARS CoV 2 Ag, QL IA, respi rator y speci men Unknown Analyte Normal =Negat claudia Not Available [address] [place] [address], [phone], 10/26/2022 16:36:20 10/26/19 23 10/26/2022 rapid SARS CoV 2 Ag, QL IA, respi rator y speci men Unknown Analyte negati ve Not Available [address] [place] [address], [address], 10/26/2022 16:36:20 10/26/19 23 10/26/2022 rapid strep group A, throa t Unknown Analyte Normal = Negati ve Not Available [address] [place] [address], [place], [address], 10/26/2022 16:32:30 10/26/19 23 10/26/2022 rapid strep group A, throa t Unknown Analyte negati ve Not Available [address] [place] [address], [address], 10/26/2022 16:32:30 Result Notes None recorded. Problems Name Problem SNOMED Code Status Onset Date Resolution Date Notes Provider Name and Address Organization Details Recorded Time Inguinal hernia 100769524 Active 023 [facility] 16:34:58 Problem Notes None recorded. Procedures Surgical History Date Name Laterality Status Provider Name and Address Organization Details Recorded Time repair of inguinal hernia completed MAGNOLIA Aponte [facility] 10/26/2022 16:35:13 orthognathic operation of mandible completed MAGNOLIA DAVIDE BOATENG [facility] 10/26/2022 16:35:55 Imaging Results None recorded. Procedure Notes None recorded. Medical Equipment None Reported. Allergies No known drug allergies Medications Not known to be on any medication Vitals Date Recorded Body height Body mass index (BMI) Body weight Pain severity - 0-10 verbal numeric rating [Score] - Reported Respiratory rate Body temperature Oxygen saturation Oxygen saturation in Arterial blood by Pulse oximetry Heart rate Systolic blood pressure Diastolic blood pressure Provider Name and Address Organization Details Last Updated DateTime 193.04 cm 28 kg/m2 171878. 25 g 0 18 /min 97.9 [degF] 99 % 99 % 102 /min 129 mm[Hg] 89 mm[Hg] MAGNOLIA BOATENG [facility] 16:36:56 Social History Question Answer Notes LastModified by Organizat ion Details LastModified Time Tobacco Smoking Status Never Smoker MAGNOLIA forrester [facility] 10/26/2022 16:36:13 What Is Your Level Of Alcohol Consumption? Occasional [email or web address] Information not available 10/26/2022 Do You Use Any Illicit Or Recreational Drugs? No [email or web address] Information not available 10/26/2022 Have You Recently Traveled Abroad? No [email or web address] Information not available 10/26/2022 Do You Or Have You Ever Used Any Other Forms Of Tobacco Or Nicotine? No [email or web address] Information not available 10/26/2022 Sex: Unknown Functional Status None recorded. Mental Status None recorded. Family History Relationship Description Onset Age of this Age Resolved Age Notes LastModified by Organization Details LastModified Time Father No current problems or disability [email or web address] Not available 10/26 16:35:58 Mother No current problems or disability [email or web address] Not available 10/26 16:35:58 Medical History No medical history recorded. Past Encounters Encounter ID Performer Location Encounter Start Date Encounter Closed Date Diagnosis/Indication Diagnosis SNOMED-CT Code Diagnosis ICD10 Code Diagnosis Note [id number] [address] [address] [address] 08/30/2020 14:25:50 08/30/2020 15:37:46 [id number] [facility] [address] [facility] [place] [address] 02/24/2022 08:22:06 02/24/2022 10:34:07 [id number] [address] [address] [facility] [place] [address] 01/12/2020 11:29:20 01/12/2020 14:15:25 [id number] [address] [facility] [place] [address] 01/11/2016 07:59:15 01/11/2016 08:33:14 [id number] Bucky Burnett MD [address] [address] [facility] [facility] [place] [address] 10/26/2022 16:17:56 10/26/2022 17:30:57 Upper respiratory infection 14095689 J06.9 Health Concerns Section Related Observation LastModified by Organization Detai ls LastModified Time None Recorded Concern Status LastModified by Organization Details LastModified Time None Recorded Advance Directives Directive None Recorded Payers Encounter Date Sequence Insurance Name Policy Number Policy Gabriel Covered Member ID Gabriel Member ID Guarantor Name 01/11/2016 1 [place] [employer] 111 [place] Jennings [id number] Kaslaith Jennings 01/12/2020 1 [employer] [employer] 111 Chester Jennings [id number] Kaslaith Jennings 08/30/2020 1 [employer] [employer] 111 Chester Jennings [id number] Kaslaith Mcgillcz 02/24/2022 1 [place] [employer] 111 Chester Jennings [id number] Kasimierdawna Mcgillcz 10/26/2022 1 [place] [employer] 111 Chester Jennings [id number] Chester Jennings Notes Date Note Type Note Provider Name and Address Organization Details Recorded Time 10/26/2022 text/html Sore throatRepor yeyo bypatient.Location:t hroat Severity:moderate Quality:sharp; hurts to swallow Onset/Timin days Associated Symptoms:no sputum production; no shortness of breath; no sinus pain; no vomiting; no nausea; No hoarseness;coughing Bucky Burnett MD [address] [place], [place] [address], [address], [place] - [facility] 10/26/2022 17:10:56
== END 2024-11-20 09:38 | disposition home or self-care (01) ==
PROVIDERS: Visit Provider Physician Assistant
DX: M12.811 Other specific arthropathies, not elsewhere classified, right shoulder (principal)
CPT/HCPCS: 99213

== ENCOUNTER → 2024-11-20 09:19 | Outpatient (BNVA) | payer BC, SELFPAY | PROVIDERS: Visit Provider Physician Assistant ==

== ENCOUNTER → 2024-12-05 07:13 | Outpatient (BNV) | payer BC, SELFPAY | PROVIDERS: PCP Internal Medicine; Visit Provider Radiology Diagnostic Radiology | DX: M19.011 Primary osteoarthritis, right shoulder (principal); M75.121 Complete rotator cuff tear or rupture of right shoulder, not specified as traumatic | CPT/HCPCS: 73221 ==

== ENCOUNTER 2024-12-05 07:20 | Outpatient (REF) | payer BC, SELFPAY ==
--- NOTE | ~2024-12-05 | MR_ITS ---
EXAMINATION: MRI RIGHT SHOULDER WITHOUT CONTRAST HISTORY: M12.811 - Other specific arthropathies, not elsewhere classified, right ... COMPARISON: Correlation is made with plain films of the right shoulder dated 10/08/2024. TECHNIQUE: Coronal T1, T2, and fat suppressed T2, axial fat suppressed proton density, and sagittal T2 weighted MR images of the right shoulder were obtained. FINDINGS: Bone Marrow: There are cystic changes in the humeral head in the region of the greater tuberosity. Bone marrow signal intensity is otherwise normal. Joint effusion: There is a moderate sized glenohumeral joint effusion. Glenohumeral joint: There is mild cartilage irregularity involving the humeral head. AC joint: There is moderate osteoarthritis with cartilage loss and osteophyte formation. Supraspinatus muscle/tendon: There is a complete rupture of the supraspinatus tendon with tendon retraction to the level of the AC joint. There is moderate muscle atrophy and mild edema. There is fluid in the subdeltoid/subacromial bursa. The humeral head is high riding. Infraspinatus muscle/tendon: There is also a large full-thickness tear of the infraspinatus tendon. There is moderate muscle atrophy and edema. Teres minor muscle/tendon: The teres minor tendon is intact. Normal muscle bulk. Subscapularis muscle/tendon: There is mild increased signal intensity within the distal subscapularis tendon consistent with tendinopathy or a partial tear. Normal muscle bulk. Biceps tendon: The biceps tendon is intact and normally located. Glenoid labrum: The glenoid labrum is grossly unremarkable in appearance. Other findings: None MR/MR shoulder RT wo con IMPRESSION: 1. Complete rupture of the supraspinatus tendon with tendon retraction and muscle atrophy. The humeral head is high riding. 2. Large full-thickness tear of the infraspinatus tendon with muscle atrophy. 3. Findings consistent with tendinopathy versus a partial tear of the distal subscapularis tendon. 4. Moderate osteoarthritis of the AC joint. Moderate joint effusion. Electronically signed by: Yaya Han MD 12/05/2024 09:27 AM [facility]
--- OUTSIDE RECORDS SUMMARY | 2024-12-05 07:24 | XMS_ITS | Data Portability ---
Author Organization KILO Kilgore [facility], [facility] Address [address] [place] [address] Assessment No assessment recorded. Plan of Treatment Reminders Order Date Submit Date Provider Last Modified By Organization Details Last Modified Time Details Appointments None recorded. Lab rapid strep group A, throat 2022 023 [email or web address] 20995[facility], [address] [place] [address], [phone], 3 17:01:03 rapid SARS CoV 2 Ag, QL IA, respiratory specimen 2022 023 [email or web address] _[facility], [address] [place] [address], [address], 3 17:01:03 streptococc us group A, culture, throat 2022 023 [place] [facility], [address] [place] [address], [place], [address], 3 10:07:12 Referral None recorded. Procedures None recorded. Surgeries None recorded. Imaging None recorded. Medication Orders None recorded. Patient TargetsNo targets recorded. Patient Instructions Encounter Date Encounter Id Patient Instructions Last Modified By Organization Details Last Modified Time 10/26/2022 [id number] sore throat: car e instructions Not available [...] Not Available [facility] ([facility]) [address] [facility], [place], [address], 10/29/2022 12:06:24 10/26/19 23 10/26/2022 rapid SARS CoV 2 Ag, QL IA, respi rator y speci men Unknown Analyte Normal =Negat claudia Not Available [address] [place] [address], [phone], 10/26/2022 16:36:20 10/26/19 23 10/26/2022 rapid SARS CoV 2 Ag, QL IA, respi rator y speci men Unknown Analyte negati ve Not Available [address] [place] [address], [address], 10/26/2022 16:36:20 10/26/19 23 10/26/2022 rapid strep group A, throa t Unknown Analyte Normal = Negati ve Not Available [address] [place] [address], [place], [address], 10/26/2022 16:32:30 10/26/19 23 10/26/2022 rapid strep group A, throa t Unknown Analyte negati ve Not Available [address] [place] [address], [address], 10/26/2022 16:32:30 Result Notes None recorded. Problems Name Problem SNOMED Code Status Onset Date Resolution Date Notes Provider Name and Address Organization Details Recorded Time Inguinal hernia 213224851 Active 023 KIL[facility] 16:34:58 Problem [...] Last Updated DateTime 193.04 cm 28 kg/m2 596303. 25 g 0 18 /min 97.9 [degF] 99 % 99 % 102 /min 129 mm[Hg] 89 mm[Hg] MAGNOLIA BOATENG [facility] 16:36:56 Social History Question Answer Notes LastModified by Organizat ion Details LastModified Time Tobacco Smoking Status Never Smoker MAGNOLIA forrester [facility] 10/26/2022 16:36:13 What Is Your Level Of Alcohol Consumption? Occasional [email or web address] Information not available 10/26/2022 Do You Use Any Illicit Or Recreational Drugs? No [email or web address] Information not available 10/26/2022 Have You Recently Traveled Abroad? No [email or web address] Information not available 10/26/2022 Do You Or Have You Ever Used Any Other Forms Of Tobacco Or Nicotine? No [email or web address] Information not available 10/26/2022 Sex: Unknown Functional Status None recorded. Mental Status None recorded. Family History Relationship Description Onset Age of this Age Resolved Age Notes LastModified by Organization Details LastModified Time Father No current problems or disability [email or web address] Not available 10/26 16:35:58 Mother No current problems or disability [email or web address] Not available 10/26 16:35:58 Medical History No medical history recorded. Past Encounters Encounter ID Performer Location Encounter Start Date Encounter Closed Date Diagnosis/Indication Diagnosis SNOMED-CT Code Diagnosis ICD10 Code Diagnosis Note [id number] [address] [address] [address] 08/30/2020 14:25:50 08/30/2020 15:37:46 [id number] [address] [facility] [place] [address] 02/24/2022 08:22:06 02/24/2022 10:34:07 [id number] [address] [address] [facility] [facility] [place] [address] 01/12/2020 11:29:20 01/12/2020 14:15:25 [id number] [address] [address] [facility] [place] [address] 01/11/2016 07:59:15 01/11/2016 08:33:14 [id number] Bucky Burnett MD [address] [facility] [place] [address] 10/26/2022 16:17:56 10/26/2022 17:30:57 Upper respiratory infection 76929003 J06.9 Health Concerns Section Related Observation LastModified by Organization Detai ls LastModified Time None Recorded Concern Status LastModified by Organization Details LastModified Time None Recorded Advance Directives Directive None Recorded Payers Encounter Date Sequence Insurance Name Policy Number Policy Gabriel Covered Member ID Gabriel Member ID Guarantor Name 01/11/2016 1 [employer] [employer] 111 Chester Jennings [id number] Kaslaith Jennings 01/12/2020 1 [employer] [employer] 111 Chester Jennings [id number] Kaslaith Jennings 08/30/2020 1 [employer] [employer] 111 Chester Jennings [id number] Kaslaith Mcgillcz 02/24/2022 1 [employer] [employer] 111 Chester Jennings [id number] Kasimierdawna Mcgillcz 10/26/2022 1 [employer] [employer] 111 Chester Jennings [id number] Chester Jennings Notes Date Note Type Note Provider Name and Address Organization Details Recorded Time 10/26/2022 text/html Sore throatRepor yeyo bypatient.Location:t hroat Severity:moderate Quality:sharp; hurts to swallow Onset/Timin days Associated Symptoms:no sputum production; no shortness of breath; no sinus pain; no vomiting; no nausea; No hoarseness;coughing Bucky Burnett MD [address] [place], [place] [address], [address], [place] - [facility] 10/26/2022 17:10:56
== END 2024-12-05 07:21 | disposition home or self-care (01) ==
LOC: HO.MRI 07:20
PROVIDERS: PCP Internal Medicine; Visit Provider Physician Assistant
DX: M12.811 Other specific arthropathies, not elsewhere classified, right shoulder (principal); S46.011A Strain of muscle(s) and tendon(s) of the rotator cuff of right shoulder, initial encounter; M25.411 Effusion, right shoulder; X58.XXXA Exposure to other specified factors, initial encounter; Y93.9 Activity, unspecified; Y92.9 Unspecified place or not applicable; Y99.9 Unspecified external cause status
CPT/HCPCS: 73221

== ENCOUNTER 2024-12-13 09:28 | Outpatient (AMB) | payer BC, SELFPAY ==
--- NOTE | 2024-12-13 09:55 | MHC.OFFVIS ---
Intake Visit Reasons: OV - right shoulder MRI review Intake Note: Florin is a 64 year old right hand dominant male who presents today for a right shoulder MRI Review. He was last seen with Catina Palm where he reported a work related injury to the right shoulder on 10/06/2024 Allergies No Known Allergies Allergy (Verified 11/20/24 09:22) HPI HPI OV - right shoulder MRI review : Details: Florin is a 64 year old right hand dominant male who presents today for a right shoulder MRI Review. He was last seen with Catina Chaparro where he reported a work related injury to the right shoulder on 10/06/2024. He is uncomfortable but improving compared to prior. He is able to raise his hand above his head with some mild discomfort. 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 IMPRESSION: 1. Complete rupture of the supraspinatus tendon with tendon retraction and muscle atrophy. The humeral head is high riding. 2. Large full-thickness tear of the infraspinatus tendon with muscle atrophy. 3. Findings consistent with tendinopathy versus a partial tear of the distal subscapularis tendon. 4. Moderate osteoarthritis of the AC joint. Moderate joint effusion. Assessment & Plan Assessment & Plan (1) Rotator cuff arthropathy of right shoulder: Code(s): M12.811 - Other specific arthropathies, not elsewhere classified, right shoulder Category: Medical Plan: This is a 64 yo M who injured his shoulder ~ 3 months ago. He has underlying RTC arthropathy. I discussed this with him at length. I explained the patho-anatomy of this condition and explained the treatment options including injections and surgery. He is improving and I recommend he continue to focus on ROM exercises. No additional intervention warranted at this time. 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 He has been doing this and may continue to do so but I would advise against lifting away from his body. He may follow up in 3 months. Coding Level of Care Code Est Pt Level 4 (83840) Diagnoses Rotator cuff arthropathy of right shoulder M12.811
--- OUTSIDE RECORDS SUMMARY | 2024-12-13 10:45 | XMS_ITS | Data Portability ---
Author Organization KILO Kilgore [facility], [address] Address [address] [place] [address] Assessment No assessment recorded. Plan of Treatment Reminders Order Date Submit Date Provider Last Modified By Organization Details Last Modified Time Details Appointments None recorded. Lab rapid strep group A, throat 2022 023 [email or web address] 20995_[facility], [address] [place] [address], [address], 3 17:01:03 rapid SARS CoV 2 Ag, QL IA, respiratory specimen 2022 023 [email or web address] _[facility], [address] [place] [address], [address], 3 17:01:03 streptococc us group A, culture, throat 2022 023 [place] [facility], [address] [place] [address], [place], [address], 3 10:07:12 Referral None recorded. Procedures None recorded. Surgeries None recorded. Imaging None recorded. Medication Orders None recorded. Patient TargetsNo targets recorded. Patient Instructions Encounter Date Encounter Id Patient Instructions Last Modified By Organization Details Last Modified Time 10/26/2022 [id number] sore throat: car e instructions Not available [...] Range : Negat claudia Not Available [facility] ([facility]) [address] [facility], [place], [address], 10/29/2022 12:06:24 10/26/19 23 10/26/2022 rapid SARS CoV 2 Ag, QL IA, respi rator y speci men Unknown Analyte Normal =Negat claudia Not Available [address] [place] [address], [address], 10/26/2022 16:36:20 10/26/19 23 10/26/2022 rapid SARS CoV 2 Ag, QL IA, respi rator y speci men Unknown Analyte negati ve Not Available [address] [place] [address], [address], 10/26/2022 16:36:20 10/26/19 23 10/26/2022 rapid strep group A, throa t Unknown Analyte Normal = Negati ve Not Available [address] [place] [address], [place], [address], 10/26/2022 16:32:30 10/26/19 23 10/26/2022 rapid strep group A, throa t Unknown Analyte negati ve Not Available [address] [place] [address], [address], 10/26/2022 16:32:30 Result Notes None recorded. Problems Name Problem SNOMED Code Status Onset Date Resolution Date Notes Provider Name and Address Organization Details Recorded Time Inguinal hernia 916742770 Active 023 [facility] 16:34:58 Problem [...] Last Updated DateTime 193.04 cm 28 kg/m2 373789. 25 g 0 18 /min 97.9 [degF] 99 % 99 % 102 /min 129 mm[Hg] 89 mm[Hg] MAGNOLIA BOATENG [facility] 16:36:56 Social History Question Answer Notes LastModified by Organizat ion Details LastModified Time Tobacco Smoking Status Never Smoker MAGNOLIA forrester [facility] 10/26/2022 16:36:13 What Is Your Level Of Alcohol Consumption? Occasional Information not available 10/26/2022 Do You Use Any Illicit Or Recreational Drugs? No [email or web address] Information not available 10/26/2022 Have You Recently Traveled Abroad? No [email or web address] Information not available 10/26/2022 Do You Or Have You Ever Used Any Other Forms Of Tobacco Or Nicotine? No Information not available 10/26/2022 Sex: Unknown Functional Status None recorded. Mental Status None recorded. Family History Relationship Description Onset Age of this Age Resolved Age Notes LastModified by Organization Details LastModified Time Father No current problems or disability [email or web address] Not available 10/26 16:35:58 Mother No current problems or disability [email or web address] Not available 10/26 16:35:58 Medical History No medical history recorded. Past Encounters Encounter ID Performer Location Encounter Start Date Encounter Closed Date Diagnosis/Indication Diagnosis SNOMED-CT Code Diagnosis ICD10 Code Diagnosis Note [id number] 21005_[facility] [address] [address] 08/30/2020 14:25:50 08/30/2020 15:37:46 [id number] [facility] [address] [facility] [facility] [place] [address] 02/24/2022 08:22:06 02/24/2022 10:34:07 [id number] [address] [address] [facility] [place] [address] 01/12/2020 11:29:20 01/12/2020 14:15:25 [id number] [address] [facility] [place] [address] 01/11/2016 07:59:15 01/11/2016 08:33:14 [id number] Bucky Burnett MD [address] [facility] [place] [address] 10/26/2022 16:17:56 10/26/2022 17:30:57 Upper respiratory infection 95068021 J06.9 Health Concerns Section Related Observation LastModified by Organization Detai ls LastModified Time None Recorded Concern Status LastModified by Organization Details LastModified Time None Recorded Advance Directives Directive None Recorded Payers Encounter Date Sequence Insurance Name Policy Number Policy Gabriel Covered Member ID Gabriel Member ID Guarantor Name 01/11/2016 1 [employer] [employer] 111 [address] Jennings [id number] Chester Jennings 01/12/2020 1 [employer] [employer] 111 Chester Jennings [id number] Kasimidania Jennings 08/30/2020 1 [employer] [employer] 111 Chester Jennings [id number] Kaslaith Mcgillcz 02/24/2022 1 [employer] [employer] 111 Chester Jennings [id number] Kasimidania Loerawicz 10/26/2022 1 [employer] [employer] 111 Chester Jennings [id number] Chester Jennings Notes Date Note Type Note Provider Name and Address Organization Details Recorded Time 10/26/2022 text/html Sore throatRepor yeyo bypatient.Location:t hroat Severity:moderate Quality:sharp; hurts to swallow Onset/Timin days Associated Symptoms:no sputum production; no shortness of breath; no sinus pain; no vomiting; no nausea; No hoarseness;coughing Bucky Burnett MD [address] [place] [address] [place], [address], [place] - [facility] 10/26/2022 17:10:56
== END 2024-12-13 13:53 | disposition home or self-care (01) ==
PROVIDERS: PCP Internal Medicine; Visit Provider Orthopaedic Surgery
DX: M12.811 Other specific arthropathies, not elsewhere classified, right shoulder (principal); Z04.2 Encounter for examination and observation following work accident
CPT/HCPCS: 99214

== ENCOUNTER 2025-01-24 10:31 | Outpatient (REF) | payer BC, SELFPAY ==
--- OUTSIDE RECORDS SUMMARY | 2025-01-24 12:39 | XMS_ITS | Data Portability ---
Author Organization KILO Kilgore [facility], [address] Address [address] [place] [address] Assessment No assessment recorded. Plan of Treatment Reminders Order Date Submit Date Provider Last Modified By Organization Details Last Modified Time Details Appointments None recorded. Lab rapid strep group A, throat 2022 023 [email or web address] 20995_[facility], [address] [place] [address], [address], 3 17:01:03 rapid SARS CoV 2 Ag, QL IA, respiratory specimen 2022 023 [email or web address] _[facility], [address] [place] [address], [address], 3 17:01:03 streptococc us group A, culture, throat 2022 023 [place] [facility], [address] [place] [address], [place], [address], 3 10:07:12 Referral None recorded. Procedures None recorded. Surgeries None recorded. Imaging None recorded. Medication Orders None recorded. Patient TargetsNo targets recorded. Patient Instructions Encounter Date Encounter Id Patient Instructions Last Modified By Organization Details Last Modified Time 10/26/2022 [id number] sore throat: car e instructions Not available [...] Range : Negat claudia Not Available [facility] ([facility]) [address] [facility], [place], [address], 10/29/2022 12:06:24 10/26/19 23 10/26/2022 rapid SARS CoV 2 Ag, QL IA, respi rator y speci men Unknown Analyte Normal =Negat claudia Not Available [address] [place] [address], [address], 10/26/2022 16:36:20 10/26/19 23 10/26/2022 rapid SARS CoV 2 Ag, QL IA, respi rator y speci men Unknown Analyte negati ve Not Available [address] [place] [address], [address], 10/26/2022 16:36:20 10/26/19 23 10/26/2022 rapid strep group A, throa t Unknown Analyte Normal = Negati ve Not Available [address] [place] [address], [place], [address], 10/26/2022 16:32:30 10/26/19 23 10/26/2022 rapid strep group A, throa t Unknown Analyte negati ve Not Available [address] [place] [address], [address], 10/26/2022 16:32:30 Result Notes None recorded. Problems Name Problem SNOMED Code Status Onset Date Resolution Date Notes Provider Name and Address Organization Details Recorded Time Inguinal hernia 211287620 Active 023 KILO [facility] 16:34:58 Problem [...] Last Updated DateTime 193.04 cm 28 kg/m2 626247. 25 g 0 18 /min 97.9 [degF] 99 % 99 % 102 /min 129 mm[Hg] 89 mm[Hg] MAGNOLIA BOATENG [facility] 16:36:56 Social History Question Answer Notes LastModified by Organizat ion Details LastModified Time Tobacco Smoking Status Never Smoker MAGNOLIA forrester [facility] 10/26/2022 16:36:13 What Is Your Level Of Alcohol Consumption? Occasional Information not available 10/26/2022 Do You Use Any Illicit Or Recreational Drugs? No Information not available 10/26/2022 Have You Recently Traveled Abroad? No [email or web address] Information not available 10/26/2022 Do You Or Have You Ever Used Any Other Forms Of Tobacco Or Nicotine? No [email or web address] Information not available 10/26/2022 Sex: Unknown Functional Status None recorded. Mental Status None recorded. Family History Relationship Description Onset Age of this Age Resolved Age Notes LastModified by Organization Details LastModified Time Father No current problems or disability [email or web address] Not available 10/26 16:35:58 Mother No current problems or disability [email or web address] Not available 10/26 16:35:58 Medical History No medical history recorded. Past Encounters Encounter ID Performer Location Encounter Start Date Encounter Closed Date Diagnosis/Indication Diagnosis SNOMED-CT Code Diagnosis ICD10 Code Diagnosis Note [id number] 2[address]_Chi Chang [address] [address] 08/30/2020 14:25:50 08/30/2020 15:37:46 [id number] [facility] [facility] [place] [address] 02/24/2022 08:22:06 02/24/2022 10:34:07 [id number] [address] [address] [facility] [place] [address] 01/12/2020 11:29:20 01/12/2020 14:15:25 [id number] [address] [address] [facility] [place] [address] 01/11/2016 07:59:15 01/11/2016 08:33:14 [id number] Bucky Burnett MD [address] [facility] [place] [address] 10/26/2022 16:17:56 10/26/2022 17:30:57 Upper respiratory infection 64606801 J06.9 Health Concerns Section Related Observation LastModified by Organization Detai ls LastModified Time None Recorded Concern Status LastModified by Organization Details LastModified Time None Recorded Advance Directives Directive None Recorded Payers Encounter Date Sequence Insurance Name Policy Number Policy Gabriel Covered Member ID Gabriel Member ID Guarantor Name 01/11/2016 1 [employer] [employer] 111 Chester Jennings [id number] Chester Jennings 01/12/2020 1 [employer] [employer] 111 Chester Jennings [id number] Kasimidania Jennings 08/30/2020 1 [employer] [employer] 111 Chester Jennings [id number] Kaslaith Mcgillcz 02/24/2022 1 [employer] [employer] 111 Chester Jennings [id number] Kasimidania Loerawicz 10/26/2022 1 [employer] [employer] 111 Chester Jennings [id number] Chester Jennings Notes Date Note Type Note Provider Name and Address Organization Details Recorded Time 10/26/2022 text/html Sore throatRepor yeyo bypatient.Location:t hroat Severity:moderate Quality:sharp; hurts to swallow Onset/Timin days Associated Symptoms:no sputum production; no shortness of breath; no sinus pain; no vomiting; no nausea; No hoarseness;coughing Bucky Burnett MD [address] [place] [address] [place], [address], [place] - [facility] 10/26/2022 17:10:56
[2025-01-24 13:11] LABS: MANUAL DIFF FLAG NO
[2025-01-24 13:35] LABS: Basophils Percent Auto 0.4 % (0-2); Eosinophils Absolute Auto 0.1 X10*3/uL (0.0-0.4); Eosinophils Percent Auto 1.5 % (0-4); Hematocrit 43.8 % (42.0-52.0); Hemoglobin 14.8 g/dl (14.0-18.0); Imm Gran Abs Auto 0.01 X10*3/uL (0.00-0.03); Imm Gran Pct Auto 0.1 % (0.0-0.4); Lymphocytes Absolute Auto 2.1 X10*3/uL (1.2-4.9); Lymphocytes Percent Auto 30.4 % (20-40); Mean Corpuscular HGB Conc 33.8 g/dl (31.0-36.0); Mean Corpuscular Hemoglobin 28.6 pg (27.0-33.0); Mean Corpuscular Volume 84.7 fL (80.0-98.0); Mean Platelet Volume 10.5 fL (9.4-12.4); Monocytes Absolute Auto 0.8 X10*3/uL (0.1-1.2); Monocytes Percent Auto 11.7 % (2-11); Neutrophils Absolute Auto 3.8 x10*3/uL (2.0-8.3); Neutrophils Percent Auto 55.9 % (45-73); Platelet Count 213 X10*3/uL (160-400); Red Blood Count 5.17 X10*6/uL (4.60-5.80); Red Cell Distribution Width 12.8 % (11.0-16.0); White Blood Count 6.8 X10*3/uL (4.8-10.8)
[2025-01-24 13:49] LABS: Alanine Aminotransferase 31 U/L (0-40); Albumin Level 4.2 g/dL (3.5-5.0); Anion Gap 13 (12-20); Aspartate Amino Transferase 26 U/L (5-37); Bilirubin Total 0.9 mg/dL (0.0-1.0); Blood Urea Nitrogen 17 mg/dL (9-16); Calcium 9.6 mg/dL (8.4-10.2); Carbon Dioxide 28 mmol/L (22-29); Chloride 104 mmol/L (96-108); Cholesterol 235 mg/dL (<200); Estimated Glomerular Filt Rate > 60; Glucose Fasting 99 mg/dL (60-99); HDL Cholesterol 38 mg/dL (>40); LDL Cholesterol Calculated 175 mg/dL (<100); Potassium 4.7 mmol/L (3.3-5.1); Sodium 140 mmol/L (135-145); Total Protein 7.6 g/dL (6.5-8.0); Triglycerides 111 mg/dL (<150)
[2025-01-24 13:56] LABS: Prostate Specific Antigen Scr 1.03 ng/mL (<0.05-4.0)
[2025-01-24 14:08] LABS: Alkaline Phosphatase 77 U/L (39-117)
== END 2025-01-24 10:32 | disposition home or self-care (01) ==
LOC: HO.HMGCLDS 10:31
PROVIDERS: PCP Internal Medicine; Visit Provider Internal Medicine
DX: E78.5 Hyperlipidemia, unspecified (principal); R53.83 Other fatigue; Z12.5 Encounter for screening for malignant neoplasm of prostate
CPT/HCPCS: 36415; 80053; 80061; 84153; 85025

== ENCOUNTER 2025-03-18 08:46 | Outpatient (AMB) | payer BC, SELFPAY ==
--- OUTSIDE RECORDS SUMMARY | 2025-03-18 08:54 | XMS_ITS | Data Portability ---
Author Organization KILO Kilgore [facility], [address] Address [address] [place] [address] Assessment No assessment recorded. Plan of Treatment Reminders Order Date Submit Date Provider Last Modified By Organization Details Last Modified Time Details Appointments None recorded. Lab rapid strep group A, throat 2022 023 [email or web address] 20995_[facility], [address] [place] [address], [address], 3 17:01:03 rapid SARS CoV 2 Ag, QL IA, respiratory specimen 2022 023 [email or web address] _[facility], [address] [place] [address], [address], 3 17:01:03 streptococc us group A, culture, throat 2022 023 [place] [facility], [address] [place] [address], [place], [address], 3 10:07:12 Referral None recorded. Procedures None recorded. Surgeries None recorded. Imaging None recorded. Medication Orders None recorded. Patient TargetsNo targets recorded. Patient Instructions Encounter Date Encounter Id Patient Instructions Last Modified By Organization Details Last Modified Time 10/26/2022 [id number] sore throat: car e instructions Not available [...] Available [facility] ([facility]) [address] [facility], [place], [address], 10/29/2022 12:06:24 10/26/19 23 10/26/2022 rapid SARS CoV 2 Ag, QL IA, respi rator y speci men Unknown Analyte Normal =Negat claudia Not Available [address] [place] [address], [address], 10/26/2022 16:36:20 10/26/19 23 10/26/2022 rapid SARS CoV 2 Ag, QL IA, respi rator y speci men Unknown Analyte negati ve Not Available [address] [place] [address], [address], 10/26/2022 16:36:20 10/26/19 23 10/26/2022 rapid strep group A, throa t Unknown Analyte Normal = Negati ve Not Available [address] [place] [address], [place], [address], 10/26/2022 16:32:30 10/26/19 23 10/26/2022 rapid strep group A, throa t Unknown Analyte negati ve Not Available [address] [place] [address], [address], 10/26/2022 16:32:30 Result Notes None recorded. Problems Name Problem SNOMED Code Status Onset Date Resolution Date Notes Provider Name and Address Organization Details Recorded Time Inguinal hernia 554216148 Active 023 [facility] 16:34:58 Problem Notes None recorded. Procedures Surgical History Date Name Laterality Status Provider Name and Address Organization Details Recorded Time repair of inguinal hernia completed MAGNOLIA AUGUSTINE [place] - [facility] 10/26/2022 16:35:13 orthognathic operation of [...] Updated DateTime 3 193.04 cm 28 kg/m2 974279. 25 g 18 /min 97.9 [degF] 99 % 99 % 102 /min 129 mm[Hg] 89 mm[Hg] MAGNOLIA DAVIDE BOATENG [facility] 16:36:56 Social History Question Answer Notes LastModified by [employer] Details LastModified Time Tobacco Smoking Status Never Smoker KILO Nagy [facility] 10/26/2022 16:36:13 Have You Recently Traveled Abroad? No [email or web address] Information not available 10/26/2022 Sex: Unknown Functional Status Question Answer Note LastModified by [employer] Details LastModified Time Do you use any illicit or recreational drugs? No [email or web address] Information not available 10/26/2022 Do you or have you ever used any other forms of tobacco or nicotine? No Information not available 10/26/2022 What is your level of alcohol consumption? Occasional [email or web address] Information not available 10/26/2022 Mental Status None recorded. Family History Relationship Description Onset Age of this Age Resolved Age Notes LastModified by Organization Details LastModified Time Father No current problems or disability Not available 10/26 16:35:58 Mother No current problems or disability [email or web address] Not available 10/26 16:35:58 Medical History No medical history recorded. Past Encounters Encounter ID Performer Location Encounter Start Date Encounter Closed Date Diagnosis/Indication Diagnosis SNOMED-CT Code Diagnosis ICD10 Code Diagnosis Note [id number] [facility] [address] [place] [address] 08/30/2020 14:25:50 08/30/2020 15:37:46 [id number] [facility] [address] [place] [address] 02/24/2022 08:22:06 02/24/2022 10:34:07 [id number] [facility] [address] [address] [place] [address] 01/12/2020 11:29:20 01/12/2020 14:15:25 [id number] [facility] [address] [place] [address] 01/11/2016 07:59:15 01/11/2016 08:33:14 [id number] Bucky Burnett MD [address] [address] [place] [address] 10/26/2022 16:17:56 10/26/2022 17:30:57 Upper respiratory infection 61166454 J06.9 Health Concerns Section Related Observation LastModified by Organization Detai ls LastModified Time None Recorded Concern Status LastModified by Organization Details LastModified Time None Recorded Advance Directives Directive None Recorded Payers Insurance Date Sequence Insurance Name Policy Number Policy Gabriel Covered Member ID Gabriel Member ID Guarantor Name 12/20/2022 1 [facility] [employer] 111 Chester Dick [id number] Chester Jennings Notes Date Note Type Note Provider Name and Address Organization Details Recorded Time 10/26/2022 text/html Sore throatRepor yeyo bypatient.Location:t hroat Severity:moderate Quality:sharp; hurts to swallow Onset/Timin days Associated Symptoms:no sputum production; no shortness of breath; no sinus pain; no vomiting; no nausea; No hoarseness; coughing Bucky Burnett MD [address] [place], [place] [address], [address], [place] - [facility] 10/26/2022 17:10:56
--- NOTE | 2025-03-18 09:05 | A.OFFVIS_ITS ---
Vital Signs 03/18/25 09:08 Height 6 ft 4 in Weight 230 lb BMI 28.0 Intake Visit Reasons: OV F/U RT shoulder Intake Note: Florin is a 64 year old right hand dominant male who presents today for a follow up of his right shoulder. On 10/06/2024 he slipped and fell on ice, landing on the right shoulder. At his last visit his symptoms were improving and it was recommended that he continue ROM exercises and continue working with no heavy lifting. No intervention provided. States he has plateaued in his ROM states he continues to have limited ROM. States he is open to discussing injections. Allergies No Known Allergies Allergy (Verified 03/18/25 09:14) HPI HPI OV F/U RT shoulder: Details: Florin is a 64 year old right hand dominant male who presents today for a follow up of his right shoulder. On 10/06/2024 he slipped and fell on ice, landing on the right shoulder. At his last visit his symptoms were improving and it was recommended that he continue ROM exercises and continue working with no heavy lifting. No intervention provided. States he has plateaued in his ROM states he continues to have limited ROM. States he is open to discussing injections. 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 Can not comfortably get his hand to the back of his head. 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 He does not do heavy lifting but he is active and is frustrated by the weakness and soreness. He states he can not sleep on the right side. I reviewed his MRI and x-rays with him and discussed his diagnosis. I explained the pathophysiology and the treatment options including injections, PT, NSAIDs, pain management and surgery. He will think about our conversation. The easiest next step would be an injection but he is hesitant to do this. Coding Level of Care Code Est Pt Level 4 (48439) Diagnoses Rotator cuff arthropathy of right shoulder M12.811
[2025-03-18 09:08] VITALS: BMI 28.0
== END 2025-03-18 09:59 | disposition home or self-care (01) ==
LOC: HO.HOS 08:47
PROVIDERS: PCP Internal Medicine; Visit Provider Orthopaedic Surgery
DX: M12.811 Other specific arthropathies, not elsewhere classified, right shoulder (principal)
CPT/HCPCS: 99214

== ENCOUNTER → 2025-03-18 08:46 | Outpatient (BNVA) | payer BC, SELFPAY | PROVIDERS: PCP Internal Medicine; Visit Provider Orthopaedic Surgery ==